=== PATIENT | female | born 1965 | race Caucasian/White ===

== ENCOUNTER 2017-09-28 13:46 | Emergency (ER) | payer BC ==
[2017-09-28 13:52] VITALS: BP 117/62
[2017-09-28] MEDS ORDERED: Fluorescein Sodium TOPICAL* 1 MG TEST OPHTHALMIC ONE (14:00)
[2017-09-28] MEDS ORDERED: Tetracaine 0.5% OPTH.SOL 4 ML* 1 DROP BTL LEFT EYE ONE (14:17)
--- NOTE | 2017-09-28 14:18 | UC ---
Eye Complaint HPI - HPI Summary HPI Summary: Pt presents with left eye pain since last night. She tells me that she was lying in bed reading, when her left eye began to itch. She itched her eye and the pain did not go away. She then tried rinsing her eye with water - no relief. This morning she woke up and her left eye was still itching with a feeling that there was something underneath the left upper eyelid. Denies fever , chills, contact wear, recent exposure to dust/metals/perkins, change in vision, headache, or drainage. - History of Current Complaint Chief Complaint: UCEye Stated Complaint: EYE LID COMPLAINT Time Seen by Provider: 09/28/17 13:59 Hx Obtained From: Patient ?: No Onset/Duration: Sudden Onset Timing: Constant Severity Initially: Moderate Severity Currently: Moderate Pain Intensity: 8 Pain Scale Used: 0-10 Numeric Location of Injury: Eye Lid (upper) Character: Foreign Body Sensation Aggravating Factor(s): Blinking Alleviating Factor(s): Nothing Associated Signs And Symptoms: Positive: Negative - Allergies/Home Medications Allergies/Adverse Reactions: Allergies Allergy/AdvReac Type Severity Reaction Status Date / Time No Known Allergies Allergy Verified 09/28/17 13:52 PMH/Surg Hx/FS Hx/Imm Hx Previously Healthy: Yes - Surgical History Surgical History: None - Social History Occupation: Employed Full-time Lives: With Family Alcohol Use: Occasionally Substance Use Type: None Smoking Status (MU): Never Smoked Tobacco Review of Systems Constitutional: Negative Skin: Negative Eyes: Other - Left eye pain ENT: Negative Respiratory: Negative Cardiovascular: Negative Musculoskeletal: Negative Neurological: Negative Psychological: Negative All Other Systems Reviewed And Are Negative: Yes Physical Exam Triage Information Reviewed: Yes Appearance: Well-Appearing, Well-Nourished Vital Signs: Initial Vital Signs Temp 98.0 F 09/28/17 13:49 Pulse 72 09/28/17 13:49 Resp 18 09/28/17 13:49 BP 117/62 09/28/17 13:49 Pulse Ox 100 09/28/17 13:49 Vital Signs Reviewed: Yes Eyes: Positive: Conjunctiva Clear, Other: - Upper and lower eyelids are mildy erythematous and appear irritated. There is no discharge. OD 20/30. OS 20/25. OU 20/20. Eyelid was inverted and no foreign body was appreciated. Fluorescein dye was administered and no uptake was appreciated throughout the eye. No zbigniew sign.. Negative: Discharge ENT: Positive: Normal ENT inspection, Hearing grossly normal, Pharynx normal, TMs normal, Uvula midline. Negative: Pharyngeal erythema, Nasal congestion, Nasal drainage, TM bulging, TM dull, TM red, Tonsillar swelling, Tonsillar exudate, Sinus tenderness Neck: Positive: Supple, Nontender, No Lymphadenopathy Eye Complaint Course/Dx - Course Course Of Treatment: Fluorescein dye exam was unremarkable. Tetracaine was administered with great relief. Ofloxacin opthalmic to left eye. F/u with Opthalmology if symptoms persist - Differential Dx/Diagnosis Differential Diagnosis/HQI/PQRI: Corneal Abrasion, Other - Blepharitis Provider Diagnoses: Corneal Abrasion Discharge - Discharge Plan Condition: Stable Disposition: HOME Prescriptions: Ofloxacin 0.3%(Ophth)(Nf) [Ocuflox OPTH 0.3%(NF)] 1 drop LEFT EYE BID #1 btl Patient Education Materials: Corneal Abrasion (ED) Referrals: No Primary Care Phys,NOPCP [Primary Care Provider] - Thomas Delacruz MD [Medical Doctor] - Additional Instructions: 1) Antibiotic eye drops 2) If your symptoms worsen or are persisting by Sunday 09/30, please call ophthalmology at the number below for follow up. If you develop a fever, SOB, chest pain, new or worsening symptoms - please call your PCP or go to the ED.
== END 2017-09-28 14:40 | disposition home or self-care (01) ==
LOC: UCEAST 13:46
DX: S05.02XA Injury of conjunctiva and corneal abrasion without foreign body, left eye, initial encounter (principal); X58.XXXA Exposure to other specified factors, initial encounter; Y93.89 Activity, other specified; Y92.003 Bedroom of unspecified non-institutional (private) residence as the place of occurrence of the external cause; Y99.9 Unspecified external cause status
CPT/HCPCS: 99212; A9270-GY; G0463